=== PATIENT | female | born 1950 | race Caucasian/White ===

== ENCOUNTER 2019-11-03 16:01 | Emergency (ER) | payer OTHER ==
[~2019-11-03] VITALS: Ht 162.6 cm; Wt 81.7 kg
[2019-11-03] MEDS ORDERED: TOPROL XL25 MG PO (16:43)
[2019-11-03] MEDS ORDERED: CALCIUM + D SO1 EACH PO (16:44)
[2019-11-03] MEDS ORDERED: PROAIR HFA8.5 GM INH (16:46)
[2019-11-03 16:47] LABS: BASOPHILS 1.2 % (0.0-2.0); EOSINOPHILS 3.1 % (0.0-3.0); HEMATOCRIT 45.2 % (37.0-47.0); HEMOGLOBIN 15.4 gm/dL (12.0-15.0); LYMPHOCYTES 30.1 % (24.0-44.0); MCH 34.8 pg (26.0-34.0); MCHC 34.2 g/dL (28.0-37.0); MONOCYTES 9.1 % (1.0-8.0); PLATELET COUNT 233 thou/uL (150-400); POLYS 56.5 % (36.0-66.0); RBC 4.43 mil/uL (4.20-5.00); RDW 14.2 % (10.5-14.5); WBC 7.1 thou/uL (4.0-11.0)
[2019-11-03 17:03] LABS: ANION GAP 11 mmol/L (7-16); BUN 12 mg/dL (7-18); CALCIUM 9.1 mg/dL (8.5-10.1); CHLORIDE 107 mmol/L (98-107); CO2 22 mmol/L (21-32); GLUCOSE 87 mg/dL (74-106); POTASSIUM 3.7 mmol/L (3.5-5.1); SODIUM 140 mmol/L (136-145)
[2019-11-03 17:11] LABS: ALBUMIN 3.9 g/dL (3.4-5.0); SGOT 25 U/L (15-37); SGPT 29 U/L (30-65); TOTAL BILIRUBIN 1.1 mg/dL (<0.1-1.0); TOTAL PROTEIN 7.4 g/dL (6.4-8.2); TROPONIN-I <0.06 ng/mL (<0.06)
[2019-11-03 20:47] VITALS: BP 142/81
--- NOTE | 2019-11-04 08:35 | EKG ---
[facility] [place] [address] [place] [address] ELECTROCARDIOGRAM REPORT Name: LIZZY CARRILLO Room #: [facility]P [facility]USN[facility]#: [id number] Admission: 11/03/19 Attend Phys: Discharge: 11/03/19 Date of : 46 Report #: [id number] THIS REPORT FOR: cc: AALIYAH - Adrianna family physician/PCP AALIYAH - Adrianna family physician/PCP Robert Contreras MD [facility] THIS REPORT FOR: //name// [facility] ED Test Date: 2019-11-03 Test Time: 16:05:18 Pat Name: LIZZY ARCEO Department: Room: Gender: F [employer] Organizer: [facility] : 1950 Requested By: Stewart Vivas Order Number: [id number] MD: Robert Contreras Measurements Intervals [place] Rate: 76 P: 40 KS: 186 QRS: -29 QRSD: 90 T: 51 QT: 372 QTc: 419 Interpretive Statements Sinus rhythm Borderline left axis deviation Borderline T abnormalities, anterior leads No previous ECG available for comparison Electronically Signed On 11-04-2019 8:33:35 CDT by Robert Contreras [email or web address] <ELECTRONICALLY SIGNED> By: Robert Contreras MD, FACC 11/04/19 0833 1605 [id number] Robert Contreras MD, [facility] /EPI
== END 2019-11-03 20:48 | disposition home or self-care (01) ==
LOC: ER 16:01
PROVIDERS: Emergency Medicine
DX: R07.89 Other chest pain (principal); R05 Cough; Z79.899 Other long term (current) drug therapy; Z88.8 Allergy status to other drugs, medicaments and biological substances

== ENCOUNTER 2020-10-25 09:48 | Emergency (ER) | payer OTHER ==
[~2020-10-25] VITALS: Ht 162.6 cm; Wt 75.8 kg
[~2020-10-25 09:48] MED LIST: CALCIUM + D SO1 EACH PO; PROAIR HFA8.5 GM INH; TOPROL XL25 MG PO
[2020-10-25 12:20] VITALS: BP 142/113
== END 2020-10-25 12:21 | disposition home or self-care (01) ==
LOC: ER 09:48
DX: S00.83XA Contusion of other part of head, initial encounter (principal); S80.212A Abrasion, left knee, initial encounter; I10 Essential (primary) hypertension; M10.9 Gout, unspecified; M25.552 Pain in left hip; M25.532 Pain in left wrist; Z79.899 Other long term (current) drug therapy; Z91.048 Other nonmedicinal substance allergy status; W01.0XXA Fall on same level from slipping, tripping and stumbling without subsequent striking against object, initial encounter; Y93.89 Activity, other specified; Y92.89 Other specified places as the place of occurrence of the external cause; Y99.8 Other external cause status

== ENCOUNTER 2021-01-17 02:00 | Emergency (ER) | payer OTHER ==
[~2021-01-17] VITALS: Ht 162.6 cm; Wt 74.4 kg
[2021-01-17 02:58] LABS: ABSOLUTE NEUTROPHILS 4.6 thou/uL (1.4-8.2); BASOPHILS 0.9 % (0.0-2.0); EOSINOPHILS 2.2 % (0.0-3.0); HEMATOCRIT 41.9 % (37.0-47.0); HEMOGLOBIN 14.4 gm/dL (12.0-15.0); LYMPHOCYTES 19.7 % (24.0-44.0); MCH 35.4 pg (26.0-34.0); MCHC 34.4 g/dL (28.0-37.0); MONOCYTES 12.8 % (1.0-8.0); PLATELET COUNT 180 thou/uL (150-400); POLYS 64.4 % (36.0-66.0); RBC 4.07 mil/uL (4.20-5.00); RDW 14.5 % (10.5-14.5); WBC 7.1 thou/uL (4.0-11.0)
[2021-01-17 03:01] LABS: CALCIUM 8.2 mg/dL (8.5-10.1); POTASSIUM 4.4 mmol/L (3.5-5.1)
[2021-01-17] MEDS ORDERED: PROAIR HFA8.5 GM INH (05:14)
[2021-01-17 05:21] VITALS: BP 134/62
[2021-01-18] MEDS ORDERED: PROAIR HFA8.5 GM INH (13:00)
== END 2021-01-17 05:27 | disposition home or self-care (01) ==
LOC: ER 02:00
PROVIDERS: Emergency Medicine
DX: R05 Cough (principal); Z20.822 Contact with and (suspected) exposure to COVID-19; R06.2 Wheezing; R06.02 Shortness of breath; I10 Essential (primary) hypertension; M10.9 Gout, unspecified; Z98.890 Other specified postprocedural states; Z91.048 Other nonmedicinal substance allergy status; Z88.8 Allergy status to other drugs, medicaments and biological substances